=== PATIENT | female | born 1965 | race African-American/Black ===

== ENCOUNTER 2017-11-12 12:13 | Observation (INO) | payer BC, OTHER ==
--- NOTE | 2017-11-12 12:59 | RAD ---
FRONTAL VIEW CHEST: COMPARISON: 03/13/15. INDICATION: Dyspnea. FINDINGS: The lungs are clear. No free air beneath the hemidiaphragms. Cardiac silhouette is accentuated by p ortable technique. IMPRESSION: No focal consolidation. POS: CAROLINE
[2017-11-12 13:33] LABS: #Basophils 0.1 thou/uL (0.0-0.2); #Eosinphils 0.1 thou/uL (0.0-0.7); #Lymphocytes 1.6 thou/uL (1.20-3.40); #Monocytes 0.8 thou/uL (0.11-0.59); #Neutrophils 3.8 thou/uL (1.40-6.50); %Basophils 0.8 % (0.0-1.0); %Eosinophils 1.9 % (0.0-10.0); %Lymphocytes 25.5 % (21.0-51.0); %Monocytes 12.5 % (0.0-10.0); %Neutrophils 59.3 % (42.0-75.0); Hemoglobin 12.3 g/dL (12.0-16.0); Mean Corpuscular HGB CONC 34.2 g/dL (32.0-36.0); Mean Corpuscular Hemoglobin 30.8 pg (27.0-31.0); Mean Platelet Volume 7.1 fL (7.4-10.4); Platelet Count 306 thou/uL (130-400); RBC Distribution Width 11.9 % (11.5-14.5); Red Blood Cell (RBC) Count 3.98 mill/uL (4.20-5.40); White Blood Cell (WBC) Count 6.3 thou/uL (4.8-10.8)
[2017-11-12 13:47] LABS: ALT (SGPT) 35 U/L (8-55); AST (SGOT) 22 U/L (5-34); Albumin 4.6 g/dL (3.5-5.0); Alkaline Phosphatase 86 U/L (40-150); Anion Gap 16 mmol/L (10-20); BUN (Urea Nitrogen) 23 mg/dL (9.8-20.1); Bilirubin, Total 0.4 mg/dL (0.2-1.2); CK (CPK) 192 U/L (29-168); Calc. Creatinine Clearance 0 mL/min (70-130); Calcium 10.2 mg/dL (7.8-10.44); Carbon Dioxide 25 mmol/L (22-29); Chloride 99 mmol/L (98-107); Estimated GFR-MDRD 56; Globulin 3.3 g/dL (2.4-3.5); Glucose 254 mg/dL (70-105); Protein, Total 7.9 g/dL (6.0-8.3); Sodium 136 mmol/L (136-145)
[2017-11-12 13:52] LABS: CKMB 1.6 ng/mL (0-6.6); Troponin I Less than 0.010 ng/mL (< 0.028)
[2017-11-12] MEDS ORDERED: Ondansetron ODT 4 MG TAB SL PRN (16:47)
[2017-11-12] MEDS ORDERED: Sodium Chloride 0.9% 1,000 ML IV SCH (16:47)
[2017-11-12] MEDS ORDERED: Ondansetron HCl/PF 4 MG/2 ML Vial IVP PRN ×2 (16:47→20:04)
[2017-11-12] MEDS ORDERED: Acetaminophen 325 MG TAB PO PRN ×2 (16:47→20:04)
[2017-11-12 16:57] LABS: Troponin I Less than 0.010 ng/mL (< 0.028)
[2017-11-12 17:14] VITALS: BMI 31.0
[2017-11-12] MEDS ORDERED: Benzonatate 100 MG CAP PO PRN (20:00)
[2017-11-12] MEDS ORDERED: Milk Of Magnesia 30 ML UDCUP PO PRN (20:04)
[2017-11-12] MEDS ORDERED: Nitroglycerin 0.4 MG TAB (25 Tab Bottle) PO PRN (20:04)
[2017-11-12] MEDS ORDERED: Senokot 8.6 MG TAB PO PRN (20:04)
[2017-11-12] MEDS ORDERED: Ondansetron ODT 4 MG TAB PO PRN (20:04)
[2017-11-12] MEDS ORDERED: Calcium Carbonate 500 MG ChewTAB PO PRN (20:04)
[2017-11-12] MEDS ORDERED: Mag-Al 1200 mg/1200 mg/30 ML UDCUP PO PRN (20:04)
--- NOTE | 2017-11-12 20:07 | PDOC.EVN ---
Event Note - Event Note Event Note: Patient seen and examined.
[2017-11-12 20:26] LABS: Troponin I Less than 0.010 ng/mL (< 0.028)
[2017-11-12] MEDS: guaiFENesin ER 600 MG TAB PO SCH (20:57)
[2017-11-12] MEDS: Atenolol 25 MG TAB PO SCH (20:57)
[2017-11-12] MEDS ORDERED: Spironolactone 25 MG TAB PO SCH (21:00)
[2017-11-12] MEDS ORDERED: metFORMIN 500 MG TAB PO SCH (21:30)
[2017-11-12] MEDS ORDERED: glyBURIDE 5 MG TAB PO SCH (21:30)
[2017-11-12] MEDS ORDERED: Dextrose 50% Abboject 50 ML SYRINGE SLOW IVP PRN (22:19)
[2017-11-12] MEDS ORDERED: Insulin Regular 300 UNITS/3 ML VIAL SC PRN ×2 (22:19)
[2017-11-12] MEDS ORDERED: Dextrose 5% in Water 1,000 ML IV PRN (22:19)
--- NOTE | 2017-11-12 22:46 | HP ---
DATE OF ADMISSION: 11/12/2017 PRIMARY CARE PHYSICIAN: Dr. Lang at [facility]. PRIMARY SMELLER: [facility]. CHIEF COMPLAINT: Chest discomfort. HISTORY OF PRESENT ILLNESS: Patient is a 52-year-old female with paroxysmal atrial fibrillation, diabetes mellitus type 2, hypertension who presented to the emergency room with chest discomfort that has been ongoing for a week or so. She had an episode of chest discomfort which lasted longer for which she presented to the emergency room. The chest discomfort was pressure-like, substernal, associated with shortness of breath. Two weeks ago, the patient was diagnosed with acute bronchitis. She is currently on amoxicillin. She usually gets this chest pain when she has a coughing spell. She denies any nausea, vomiting, diaphoresis, palpitations or syncope. No recent immobilization, travels reported. PAST MEDICAL HISTORY: 1. Diabetes mellitus type 2. 2. Hypertension. 3. Paroxysmal atrial fibrillation. 4. History of moderate to severe mitral regurgitation. 5. Anxiety and panic attacks. PAST SURGICAL HISTORY: 1. Partial hysterectomy. 2. EGD. ALLERGIES: Patient is allergic to QUINOLONES, TOPROL-XL causes bronchospasm. She is also allergic to PRASANNA INH[employer] that causes cough. CURRENT HOME MEDICATIONS: The patient is on atenolol, digoxin, glyburide, metformin, Benicar, Januvia, spironolactone with HCTZ as well as spironolactone 25 mg at bedtime. SOCIAL HISTORY: Patient currently lives at home with her family. She denies any smoking, alcohol or drug use. FAMILY HISTORY: Positive for diabetes mellitus type 2 and hypertension. REVIEW OF SYSTEMS: The following complete review of systems was negative, unless otherwise mentioned in the HPI or below: Constitutional: Weight loss or gain, ability to conduct usual activities. Skin: Rash, itching. Eyes: Double vision, pain. ENT/Mouth: Nose bleeding, neck stiffness, pain, tenderness. Cardiovascular: Palpitations, dyspnea on exertion, orthopnea. Respiratory: Shortness of breath, wheezing, cough, hemoptysis, fever or night sweats. Gastrointestinal: Poor appetite, abdominal pain, heartburn, nausea, vomiting, constipation, or diarrhea. Genitourinary: Urgency, frequency, dysuria, nocturia. Musculoskeletal: Pain, swelling. Neurologic/Psychiatric: Anxiety, depression. Allergy/Immunologic: Skin rash, bleeding tendency. PHYSICAL EXAMINATION: VITAL SIGNS: In the emergency room showed temperature 99.1, respirations 20, pulse rate of 80, blood pressure of 130/82 with O2 saturation 97% on room air. GENERAL: A 52-year-old female in no apparent distress. Denies any chest discomfort at this time. HEENT: Head atraumatic, normocephalic, Sclerae are anicteric. Moist mucous membranes. No oral lesion. NECK: Supple, no JVD appreciated. No carotid bruit. LUNGS: Clear to auscultation bilaterally, no wheezing, rales or rhonchi appreciated. HEART: S1S2 +, 3/6 SM over the RLSSB, No heaves/pulsations. ABDOMEN: Soft, nontender, bowel sounds present. EXTREMITIES: No edema or calf tenderness. NEUROLOGIC: Grossly nonfocal, moves all four extremities. PSYCHIATRY: Alert, awake, oriented x3. SKIN: Warm and dry. LYMPH NODES: No palpable lymph nodes in the neck. PERIPHERAL VASCULAR: Radial pulses palpable bilaterally. MUSCULOSKELETAL: No joint swelling or tenderness. LABORATORY AND X-RAY FINDINGS: 1. EKG by my review showed sinus rhythm with left ventricular hypertrophy and nonspecific ST-T wave changes in the lateral lead. 2. CBC showed WBC 6.3 with hemoglobin 12.3, hematocrit 35.9, platelets 306. 3. Troponins have been negative. Creatinine 1.21 with BUN 23. 4. Chest x-ray by my review was negative for infiltrate. 5. Echocardiogram from 2012 showed normal ejection fraction with moderate to severe aortic insufficiency. 6. Stress test in 04/2014 was negative. PLAN: Patient will be monitored overnight. We will get serial troponins. We will resume all of her home medications. Started on aspirin. We will continue amoxicillin for acute bronchitis. Telemetry monitoring. We will add nebulizer treatment as needed. We will probably hold stress test due to acute bronchitis. She was advised to follow up with her account manager education at [facility]. She has not seen a account manager education for last 2 years. IMPRESSION: 1. Chest discomfort, probably secondary to repeated coughing/shortness of breath from acute bronchitis. Troponins are negative so far. 2. Paroxysmal atrial fibrillation in sinus rhythm. 3. Diabetes mellitus type 2. 4. Hypertension. 5. History of moderate to severe aortic insufficiency from last echocardiogram in 2012. She had a repeat echocardiogram at [facility]. She was advised to call [facility] tomorrow and get a follow up with a account manager education as soon as possible. Plan of care was discussed with the patient in detail. She stated understanding. GENE
[2017-11-13 07:53] VITALS: BP 107/60
[2017-11-13 07:54] VITALS: TEMP 98.8
[2017-11-13] MEDS ORDERED: GLYBURIDE PO SCH (08:00)
[2017-11-13] MEDS ORDERED: glyBURIDE 5 MG TAB PO SCH ×2 (08:00)
[2017-11-13] MEDS ORDERED: METFORMIN HCL PO SCH (08:00)
[2017-11-13] MEDS ORDERED: metFORMIN 500 MG TAB PO SCH (08:00)
[2017-11-13] MEDS: Atenolol 25 MG TAB PO SCH (08:22)
[2017-11-13] MEDS: guaiFENesin ER 600 MG TAB PO SCH (08:23)
[2017-11-13] MEDS ORDERED: Hydrochlorothiazide 25 MG TAB PO SCH (09:00)
[2017-11-13] MEDS ORDERED: Aspirin 325 mg Enteric Coated Tablet PO SCH (09:00)
[2017-11-13] MEDS ORDERED: Digoxin 0.25 MG TAB PO SCH (09:00)
[2017-11-13] MEDS ORDERED: Non-Formulary Item 1 EACH (Spironolact/Hydrochlorothiazid [Aldactazide] 1 TAB) PO SCH (09:00)
[2017-11-13] MEDS ORDERED: Spironolactone 25 MG TAB PO SCH (09:00)
[2017-11-13] MEDS ORDERED: Alogliptin 25 MG TAB PO SCH (09:00)
--- NOTE | 2017-11-13 09:40 | DIS ---
DATE OF ADMISSION: 11/12/2017 DATE OF DISCHARGE: 11/13/2017 DISCHARGE DISPOSITION: Home. FOLLOWUP: 1. Follow up with primary care physician, Dr. Lang at [facility] in 1 week. 2. Follow up with Dr. Paiz, primary navigating officer at [facility] in 1-2 weeks. Please note t hat patient has not seen Dr. Paiz for approximately 2 years. The patient was seen and examined on the day of discharge, denies any new complaints, no chest pain, shortness of breath, palpitations. BRIEF HOSPITAL COURSE: The patient is a 52-year-old -[place] female with paroxysmal atrial f ibrillation, diabetes mellitus type 2, and hypertension who presented to the hospital with chest disc omfort. The chest discomfort has been ongoing for the last couple of days. She is currently on amox icillin for acute bronchitis. Please refer to the history and physical for further details. The patient was admitted to the hospital with a diagnosis of chest discomfort, rule out acute coronar y syndrome. Serial troponins were negative. Due to recent acute bronchitis, stress test was not don e. She was advised to follow up with primary navigating officer at [facility]. She also has a history of moderate to severe aortic insufficiency in the past. Her last echocardiogram was approxi mately 2 years ago at [facility]. She was advised to follow up with the PCP and the cardiologis t for a repeat echocardiogram. She will also benefit from repeat electrolytes after 1 week. SIGNIFICANT LABORATORY DATA: BUN 23, creatinine 1.21, troponin negative. BNP less than 10. CBC mena wed WBC 6.3 with hemoglobin 12.3, hematocrit 35.9, platelet of 306. X-RAY FINDINGS: Chest x-ray was negative. FINAL DIAGNOSES: 1. Chest discomfort, acute coronary syndrome ruled out. 2. Paroxysmal atrial fibrillation. The patient is in sinus rhythm. 3. Diabetes mellitus type 2. 4. Hypertension. 5. History of moderate to severe aortic insufficiency. 6. Chronic kidney disease stage 2. 7. Obesity with a BMI of 31. Plan of care was discussed with the patient in detail. She stated understanding.
--- NOTE | 2017-11-18 11:07 | EKG ---
Test Reason : CP Blood Pressure : / mmHG Vent. Rate : 079 BPM Atrial Rate : 079 BPM P-R Int : 178 ms QRS Dur : 082 ms QT Int : 346 ms P-R-T Axes : -18 003 237 degrees QTc Int : 396 ms Normal sinus rhythm Minimal voltage criteria for LVH, may be normal variant Cannot rule out Inferior infarct , age undetermined T wave abnormality, consider lateral ischemia Abnormal ECG No ST elevation/HI T wave inversion V5,V6 Confirmed by LYNNE FISH M.D. ([id number]), manuscript editor MERCEDES SMITH ([id number] on 11/18/2017 11:06:50 AM Referred By: Confirmed By:LYNNE FISH M.D.
== END 2017-11-13 09:51 | disposition home or self-care (01) ==
LOC: ERS 12:13 → 2SW 15:16
PROVIDERS: ADMIT Internal Medicine; ATTEND Internal Medicine
DX: R07.89 Other chest pain (principal); I48.0 Paroxysmal atrial fibrillation; I35.1 Nonrheumatic aortic (valve) insufficiency; E11.22 Type 2 diabetes mellitus with diabetic chronic kidney disease; I12.9 Hypertensive chronic kidney disease with stage 1 through stage 4 chronic kidney disease, or unspecified chronic kidney disease; N18.2 Chronic kidney disease, stage 2 (mild); E66.9 Obesity, unspecified; Z68.31 Body mass index [BMI] 31.0-31.9, adult; Z88.8 Allergy status to other drugs, medicaments and biological substances; Z79.84 Long term (current) use of oral hypoglycemic drugs; Z79.899 Other long term (current) drug therapy
CPT/HCPCS: 36415; 36416; 71045; 80053; 82550; 82553; 83880; 84484; 85025; 93005; 94760; 96360; 96361; G0378

== ENCOUNTER 2018-02-14 16:27 | Emergency (ER) | payer BC ==
[2018-02-14] MEDS ORDERED: Ketorolac Tromethamine 60 MG/2 ML VIAL ONE (18:13)
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
== END 2018-02-14 19:50 | disposition home or self-care (01) ==
LOC: ERS 16:27
DX: M54.5 Low back pain (principal); I48.91 Unspecified atrial fibrillation; E11.9 Type 2 diabetes mellitus without complications; I10 Essential (primary) hypertension; F41.9 Anxiety disorder, unspecified; Z79.899 Other long term (current) drug therapy; Z79.82 Long term (current) use of aspirin; V43.52XA Car driver injured in collision with other type car in traffic accident, initial encounter
CPT/HCPCS: 72100; 96372; J1885

== ENCOUNTER 2018-10-04 23:17 | Emergency (ER) | payer BC | END 2018-10-04 23:34 | disposition home or self-care (01) | LOC: ERS 23:17 | DX: L03.211 Cellulitis of face (principal); I48.91 Unspecified atrial fibrillation; E11.9 Type 2 diabetes mellitus without complications; I10 Essential (primary) hypertension; F41.9 Anxiety disorder, unspecified; Z79.899 Other long term (current) drug therapy; Z79.82 Long term (current) use of aspirin | CPT/HCPCS: 99283 ==

== ENCOUNTER 2019-07-18 04:39 | Emergency (ER) | payer BC | END 2019-07-18 04:56 | disposition home or self-care (01) | LOC: ERS 04:39 | DX: R05 Cough (principal); E11.9 Type 2 diabetes mellitus without complications; I48.91 Unspecified atrial fibrillation; I10 Essential (primary) hypertension; F41.9 Anxiety disorder, unspecified; Z79.899 Other long term (current) drug therapy | CPT/HCPCS: 99283 ==

== ENCOUNTER 2023-05-12 07:03 | Emergency (ER) | payer BC ==
[2023-05-12 07:44] LABS: #Basophils 0.1 thou/uL (0.0-0.2); #Eosinphils 0.3 thou/uL (0.0-0.7); #Monocytes 0.6 thou/uL (0.11-0.59); #Neutrophils 3.4 thou/uL (1.40-6.50); %Basophils 0.9 % (0.0-1.0); %Eosinophils 3.9 % (0.0-10.0); %Lymphocytes 34.3 % (21.0-51.0); %Monocytes 9.2 % (0.0-10.0); %Neutrophils 51.4 % (42.0-75.0); Hemoglobin 11.8 g/dL (12.0-16.0); Mean Corpuscular HGB CONC 32.8 g/dL (32.0-36.0); Mean Corpuscular Hemoglobin 29.4 pg (27.0-31.0); Mean Corpuscular Volume 89.6 fl (78.0-98.0); Mean Platelet Volume 9.4 fL (7.4-10.4); Platelet Count 308 10x3/uL (130-400); RBC Distribution Width 13.3 % (11.5-14.5); Red Blood Cell (RBC) Count 4.02 mill/uL (4.20-5.40); White Blood Cell (WBC) Count 6.6 10x3/uL (4.8-10.8)
[2023-05-12 08:02] LABS: ALT (SGPT) 39 U/L (8-55); AST (SGOT) 28 U/L (5-34); Albumin 4.5 g/dL (3.5-5.0); Alkaline Phosphatase 63 U/L (40-110); Anion Gap 14 mmol/L (10-20); BUN (Urea Nitrogen) 19 mg/dL (9.8-20.1); Bilirubin, Total 0.5 mg/dL (0.2-1.2); Calc. Creatinine Clearance 0 mL/min (70-130); Calcium 9.9 mg/dL (7.8-10.44); Carbon Dioxide 26 mmol/L (22-29); Chloride 96 mmol/L (98-107); Estimated GFR 53; Glucose 162 mg/dL (70-105); Lipase 74 U/L (8-78); Potassium 4.2 mmol/L (3.5-5.1); Protein, Total 7.5 g/dL (6.0-8.3); Sodium 132 mmol/L (136-145)
[2023-05-12 08:06] LABS: Troponin I Less than 0.010 ng/mL (< 0.028)
== END 2023-05-12 09:07 | disposition home or self-care (01) ==
LOC: ERS 07:03
DX: U07.1 COVID-19 (principal); R00.2 Palpitations; E11.9 Type 2 diabetes mellitus without complications; I48.91 Unspecified atrial fibrillation; Z79.82 Long term (current) use of aspirin
CPT/HCPCS: 36415; 71045; 80053; 83690; 83880; 84484; 85025; 85379; 93005